=== PATIENT | male | born 1990 | race Caucasian/White ===

== ENCOUNTER 2016-07-25 10:57 | Emergency (ER) | payer MEDICAID ==
[2016-07-25 11:05] VITALS: BP 136/72; PULSE 72; RESP 16; TEMP 98; O2SAT 100
[2016-07-25 11:06] VITALS: BMI 30.9
[2016-07-25 12:27] LABS: RBC URINE 5 /hpf (0-3); URINE BILIRUBIN NEGATIVE (NEGATIVE); URINE BLOOD MODERATE (NEGATIVE); URINE COLOR YELLOW (YELLOW); URINE GLUCOSE (UA) NEG (Normal); URINE KETONE TRACE mg/dL (NEGATIVE); URINE LEUKOCYTE ESTERASE SMALL Leu/uL (Negative); URINE PROTEIN 30 mg/dL (NEGATIVE); URINE UROBILINOGEN 0.2-1.0 mg/dL (0.2-1.0); WBC URINE 21 /hpf (0-5)
--- NOTE | 2016-07-25 12:43 | US ---
HISTORY: pain TECHNIQUE: Realtime sonography through the scrotum with color and doppler flow. COMPARISON: None Available. FINDINGS: RIGHT TESTICLE: Measures 4.9 x 2.2 x 3.6 cm. No evidence of intratesticular mass. Normal Doppler flow. Tiny nonspecific calcification in the right testicle. RIGHT EPIDIDYMIS: Epididymal head measures 1.3 x 0.8 x 1.2 cm. 6 millimeter x 6 millimeter right epididymal head cyst. LEFT TESTICLE: Measures 4.3 x 2 x 3.4 cm. No evidence of intratesticular mass. Normal Doppler flow. LEFT EPIDIDYMIS: Epididymal head measures 1.0 x 0.8 x 0.7 cm. 3 millimeter left epididymal head cyst. HYDROCELE: Minimal hydrocele is seen. VARICOCELE: Minimal varicocele not excluded. OTHER FINDINGS: No scrotal wall thickening or collections. IMPRESSION: No evidence of intratesticular mass or torsion.
--- NOTE | 2016-07-25 13:05 | ED PDOC ---
HPI: Male Pain Time Seen by Provider: 07/25/16 11:10 Chief Complaint (Nursing): Male Genitourinary Chief Complaint (Provider): Male Genitourinary History Per: Patient History/Exam Limitations: no limitations Onset/Duration Of Symptoms: Days (x3 dayhs) Current Symptoms Are (Timing): Still Present Additional Complaint(s): 25 y/o male who presents to the emergency department with a complaint of an abnormal discharge (dark brown and think) after ejaculation x3 days. Experiences irritation due to shaving and intermittent testicular pain x a few months. Admits ejaculating more than usual these past few days to see if the color would clear up but nothing changed. Reports taking unknown antibiotics x 2 doses given by his father. Last sexual encounter was 2 months ago; unprotected but with no problems since and no hx of discharge or STIs. Denies penis pain, swelling, or lesions to the area. (-) rectal pain Of note, patient reports having a similar experience in the past about 2-3 years ago which lasted about 2 days no follow up. Past Medical History Reviewed: Historical Data, Nursing Documentation, Vital Signs Vital Signs: Last Vital Signs Temp 98 F 07/25/16 11:04 Pulse 72 07/25/16 11:04 Resp 16 07/25/16 11:04 BP 136/72 07/25/16 11:04 Pulse Ox 100 07/25/16 11:04 - Medical History PMH: Anxiety Denies: Diabetes, Hepatitis, HIV, HTN, Chronic Kidney Disease, Seizures, Sexually Transmitted Disease - Surgical History Surgical History: No Surg Hx - Family History Family History: States: Unknown Family Hx - Living Arrangements Living Arrangements: With Family - Social History Current smoker - smoking cessation education provided: No Alcohol: Occasional Drugs: Cannabis - Home Medications Home Medications: Ambulatory Orders Medication Instructions Recorded Ciprofloxacin [Cipro] 500 mg PO BID #14 tab 07/25/16 - Allergies Allergies/Adverse Reactions: Allergies Allergy/AdvReac Type Severity Reaction Status Date / Time Penicillins Allergy RASH Verified 07/25/16 11:07 Review of Systems ROS Statement: Except As Marked, All Systems Reviewed And Found Negative Constitutional: Negative for: Fever Gastrointestinal: Negative for: Abdominal Pain, Rectal Pain Genitourinary Male: Positive for: Penile Discharge (Brown and think discharge during ejaculation), Scrotal Pain (Intermittent). Negative for: Dysuria, Frequency, Hematuria, Rash, Penile Pain, Other (Swelling or lesions of the penis ) Musculoskeletal: Negative for: Back Pain Physical Exam - Reviewed Nursing Documentation Reviewed: Yes Vital Signs Reviewed: Yes - Physical Exam Appears: Positive for: Non-toxic, No Acute Distress Head Exam: Positive for: ATRAUMATIC, NORMOCEPHALIC Skin: Positive for: Normal Color, Warm, Dry Eye Exam: Negative for: Conjunctival injection Cardiovascular/Chest: Positive for: Regular Rate, Rhythm Respiratory: Positive for: Normal Breath Sounds Gastrointestinal/Abdominal: Positive for: Normal Exam, Soft. Negative for: Tenderness Male Genital Exam: Positive for: normal prostate (Uncircumcised; Easily retracted and repelled foreskin.), other (Has 2 small skin tears on the top of the foreskin which is secondary to masturbation. Irritation to shaved area on right aspect of the groin. ). Negative for: lesions (No swelling), scrotum tenderness (R), scrotum tenderness (L), testicular tenderness (R), testicular tenderness (L) Back: Positive for: Normal Inspection. Negative for: L CVA Tenderness, R CVA Tenderness Neurologic/Psych: Positive for: Alert, Oriented - ECG O2 Sat by Pulse Oximetry: 100 (RA) Pulse Ox Interpretation: Normal Medical Decision Making Medical Decision Making: Time: 11:10 Initial impression: Abnormal ejaculate Initial plan: --Chlamydia/GC RNA, TMA --Urine Culture Stat --Performing his own masturbation; self-inflicted for sample --Testes Duplex Complete US Time: 12:41 --Testicular Ultrasound FINDINGS: RIGHT TESTICLE:Measures 4.9 x 2.2 x 3.6 cm. No evidence of intratesticular mass. Normal Doppler flow. Tiny nonspecific calcification in the right testicle.RIGHT EPIDIDYMIS:Epididymal head measures 1.3 x 0.8 x 1.2 cm. 6 millimeter x 6 millimeter right epididymal head cyst. LEFT TESTICLE:Measures 4.3 x 2 x 3.4 cm. No evidence of intratesticular mass. Normal Doppler flow. LEFT EPIDIDYMIS:Epididymal head measures 1.0 x 0.8 x 0.7 cm. 3 millimeter left epididymal head cyst. HYDROCELE:Minimal hydrocele is seen. VARICOCELE:Minimal varicocele not excluded. OTHER FINDINGS:No scrotal wall thickening or collections. IMPRESSION:No evidence of intratesticular mass or torsion. Scribe Attestation: Documented by Arminda Almeida, acting as a scribe for Dale Ludwig PA-C. Provider Scribe Attestation: All medical record entries made by the Scribe were at my direction and personally dictated by me. I have reviewed the chart and agree that the record accurately reflects my personal performance of the history, physical exam, medical decision making, and the department course for this patient. I have also personally directed, reviewed, and agree with the discharge instructions and disposition. UA with signs of UTI. will treat with cipro discussed US as above. he was given the results of the US and the need for follow up without fail with urology stressed. calcification- can be cancer- he was made aware. return information discussed, follow up discussed, all questions answered. stable for discharge Disposition - Clinical Impression Clinical Impression: Abnormal ejaculation, Hematuria, Urinary tract infection - Patient ED Disposition Is Patient to be Admitted: No Counseled Patient/Family Regarding: Studies Performed, Diagnosis, Need For Followup, Rx Given - Disposition Referrals: [facility] [Outside] FAMILY PROVIDER,NO [Primary Care Provider] - Joao Perez MD [Medical Doctor] - Disposition Time: 13:15 Condition: STABLE Additional Instructions: US shows: IMPRESSION: No evidence of intratesticular mass or torsion. right epididymal head cyst. left epididymal head cyst. Minimal hydrocele Tiny nonspecific calcification in the right testicle. Minimal varicocele not excluded you have blood in the urine and signs of infection, take your medication without fail and follow up with urologist avoid sex and masturbation until seen by urology return for fevers or any new concerns. Prescriptions: Ciprofloxacin [Cipro] 500 mg PO BID #14 tab Instructions: Hydrocele (ED), Urinary Tract Infection in Men (ED), Acute Hematuria (ED) Print Language: [place] CITIZEN
== END 2016-07-25 13:15 | disposition home or self-care (01) ==
LOC: H.ER 10:57
DX: N39.0 Urinary tract infection, site not specified (principal); N53.19 Other ejaculatory dysfunction; N50.819 Testicular pain, unspecified; R31.9 Hematuria, unspecified

== ENCOUNTER 2016-09-13 15:59 | Emergency (ER) | payer MEDICAID, OTHER ==
[2016-09-13 16:00] VITALS: BMI 30.9
[2016-09-13 16:26] VITALS: BP 160/84; PULSE 97; RESP 19; TEMP 97.4; O2SAT 98
--- NOTE | 2016-09-13 18:44 | ED PDOC ---
HPI: Psych/Substance Abuse Time Seen by Provider: 09/13/16 18:09 Chief Complaint (Nursing): Psychiatric Evaluation Chief Complaint (Provider): Psychiatric Evaluation History Per: Patient History/Exam Limitations: no limitations Onset/Duration Of Symptoms: Mins Current Symptoms Are (Timing): Better Suicide/Self Injury Attempted (Context): None Modifying Factor(s): Alcohol, Marijuana Associated Symptoms: Anxiety Involuntary Hold By: None Additional Complaint(s): Patient is a 25 year old male who presents to ED for evaluation of feeling jittery this morning. Patient states he woke feeling jittery with palpations, smoked Marijuana with immediate improvement. Notes that he drank a large quantity of alcohol over the weekend and believe this may be the cause of his symptoms. Denies any SI or HI. States he is currently asymptomatic, requesting note for work. Denies cough, hemoptysis, chest pain, nausea, vomiting or headache. Past Medical History Reviewed: Historical Data, Nursing Documentation, Vital Signs Vital Signs: Last Vital Signs Temp 97.4 F L 09/13/16 16:23 Pulse 97 H 09/13/16 16:23 Resp 19 09/13/16 16:23 BP 160/84 H 09/13/16 16:23 Pulse Ox 98 09/13/16 16:23 - Medical History PMH: Anxiety Denies: Diabetes, Hepatitis, HIV, HTN, Chronic Kidney Disease, Seizures, Sexually Transmitted Disease - Surgical History Surgical History: No Surg Hx - Family History Family History: States: Unknown Family Hx - Living Arrangements Living Arrangements: With Family - Home Medications Home Medications: Ambulatory Orders Medication Instructions Recorded Azithromycin 1 gm PO ONCE #1 packet 07/28/16 - Allergies Allergies/Adverse Reactions: Allergies Allergy/AdvReac Type Severity Reaction Status Date / Time Penicillins Allergy RASH Verified 07/25/16 11:07 Review of Systems Constitutional: Negative for: Fever Cardiovascular: Positive for: Palpitations (resolved). Negative for: Chest Pain , Light Headedness Respiratory: Negative for: Shortness of Breath Gastrointestinal: Negative for: Nausea, Vomiting, Abdominal Pain Musculoskeletal: Negative for: Neck Pain, Back Pain Skin: Negative for: Rash Neurological: Negative for: Weakness, Numbness, Headache, Dizziness Psych: Positive for: Anxiety. Negative for: Depression, Psychosis, Suicidal ideation Physical Exam - Reviewed Nursing Documentation Reviewed: Yes Vital Signs Reviewed: Yes - Physical Exam Appears: Positive for: Non-toxic, No Acute Distress Skin: Positive for: Normal Color, Warm Eye Exam: Positive for: Normal appearance Neck: Positive for: Normal, Painless ROM Cardiovascular/Chest: Positive for: Regular Rate, Rhythm. Negative for: Murmur Respiratory: Positive for: Normal Breath Sounds. Negative for: Respiratory Distress Back: Positive for: Normal Inspection Extremity: Positive for: Normal ROM Neurologic/Psych: Positive for: Alert, Oriented - ECG ECG: Positive for: Interpreted By Me ECG Rhythm: Positive for: Sinus Rhythm. Negative for: ST/T Changes O2 Sat by Pulse Oximetry: 98 (RA) Pulse Ox Interpretation: Normal Medical Decision Making Medical Decision Making: Time: 1819 Initial Impression: Anxiety Initial Plan: -- EKG Scribe Attestation: Documented by Jena Ashley, acting as a scribe for Hao Pinto PA-C. Provider Scribe Attestation: All medical record entries made by the Scribe were at my direction and personally dictated by me. I have reviewed the chart and agree that the record accurately reflects my personal performance of the history, physical exam, medical decision making, and the department course for this patient. I have also personally directed, reviewed, and agree with the discharge instructions and disposition. Disposition - Clinical Impression Clinical Impression: Anxiety - Patient ED Disposition Is Patient to be Admitted: No - Disposition Referrals: [facility] [Outside] Disposition: Routine/Home Disposition Time: 18:20 Condition: STABLE Instructions: Anxiety (ED) Forms: [facility] ED School/Work Excuse
--- NOTE | 2016-09-14 09:25 | CARD ---
APPROVED REPORT EKG Measurement Heart [id number] <Conclusion> Normal sinus rhythm Normal ECG
== END 2016-09-13 18:51 | disposition home or self-care (01) ==
LOC: H.ER 15:59
DX: F41.9 Anxiety disorder, unspecified (principal); Z88.0 Allergy status to penicillin

== ENCOUNTER 2016-10-17 13:44 | Emergency (ER) | payer OTHER ==
[2016-10-17 13:45] VITALS: BMI 30.9
[2016-10-17 14:00] VITALS: BP 149/80; PULSE 62; RESP 18; TEMP 98.2; O2SAT 99
--- NOTE | 2016-10-17 14:38 | ED PDOC ---
HPI: Male Pain Time Seen by Provider: 10/17/16 14:05 Chief Complaint (Nursing): Male Genitourinary Chief Complaint (Provider): Rash On Head of Genitals History Per: Patient History/Exam Limitations: no limitations Onset/Duration Of Symptoms: Hrs Current Symptoms Are (Timing): Still Present Additional Complaint(s): Zen Melvin, a 25 year old male patient, who has a PMHx of Chlamydia presents to the ED with a rash on the head of his penis, which he noticed today. The patient states that he does participate in unprotected sex and has 4 sexual partners. Denies pain, dysuria, penile discharge, blisters, recent illness, fever. Past Medical History Reviewed: Historical Data, Nursing Documentation, Vital Signs Vital Signs: Last Vital Signs Temp 98.2 F 10/17/16 13:56 Pulse 62 10/17/16 13:56 Resp 18 10/17/16 13:56 BP 149/80 10/17/16 13:56 Pulse Ox 99 10/17/16 13:56 - Medical History PMH: Anxiety Denies: Diabetes, Hepatitis, HIV, HTN, Chronic Kidney Disease, Seizures, Sexually Transmitted Disease Other PMH: Chlamydia - Family History Family History: States: No Known Family Hx - Home Medications Home Medications: Ambulatory Orders Medication Instructions Recorded Azithromycin 1 gm PO ONCE #1 packet 07/28/16 - Allergies Allergies/Adverse Reactions: Allergies Allergy/AdvReac Type Severity Reaction Status Date / Time Penicillins Allergy RASH Verified 07/25/16 11:07 Review of Systems Constitutional: Negative for: Fever Genitourinary Male: Negative for: Dysuria, Penile Discharge, Penile Pain, Other (Negative for blisters) Physical Exam - Reviewed Nursing Documentation Reviewed: Yes Vital Signs Reviewed: Yes - Physical Exam Appears: Positive for: Non-toxic, No Acute Distress Gastrointestinal/Abdominal: Positive for: Normal Exam. Negative for: Soft, Tenderness Male Genital Exam: Positive for: other (Scattered erythematous papules on penile head w/o vesicles or pustules.). Negative for: testicular tenderness (R ) (No testicular tenderness or swelling.), testicular tenderness (L) (No testicular tenderness or swelling.) Neurologic/Psych: Positive for: Alert, Oriented, Gait - ECG O2 Sat by Pulse Oximetry: 99 (RA) Pulse Ox Interpretation: Normal Medical Decision Making Medical Decision Makin:05 Initial Impression: 25 year old male presenting with a rash on the head of his genitalia. Initial Plan: * HSV 1/2 (IGG),HSV(IGM) W/RF * Reevaluation The patient was informed that he may have genital herpes or genital warts, but a biopsy must be done in order to fully confirm. He was also instructed to inform all sexual partners of his current pending diagnosis and advised to avoid sexual intercourse until cleared. HSV testing will be done today. Patient was instructed to follow up with his PMD or a urologist for further testing. He states that he has an appointment with his PMD on Tuesday. Scribe Attestation Documented by Ashtyn Coulter acting as a scribe for Hao Pinto PA-C. Scribe Attestation All medical record entries made by the Scribe were at my direction and personally dictated by me. I have reviewed the chart and agree that the record accurately reflects my personal performance of the history, physical exam, medical decision making, and the department course for this patient. I have also personally directed, reviewed, and agree with the discharge instructions and disposition. Disposition - Clinical Impression Clinical Impression: Penile rash - Patient ED Disposition Is Patient to be Admitted: No - Disposition Referrals: [facility] [Outside] Justino Rogers MD [Medical Doctor] - Disposition Time: 14:15 Condition: STABLE Additional Instructions: Follow up with Dr. Rogers, urologist, or your PMD for further evaluation of rash. Instructions: Sexually Transmitted Diseases (ED), Safe Sex (ED)
== END 2016-10-17 14:38 | disposition home or self-care (01) ==
LOC: H.ER 13:44
DX: R21 Rash and other nonspecific skin eruption (principal); Z86.19 Personal history of other infectious and parasitic diseases

== ENCOUNTER 2017-03-22 10:45 | Emergency (ER) | payer OTHER ==
[2017-03-22 11:07] VITALS: BMI 31.0
[2017-03-22] MEDS ORDERED: Sodium Chloride 0.9% 1,000 ML IV STA (11:17)
--- NOTE | 2017-03-22 11:20 | ED PDOC ---
HPI: Abdomen Time Seen by Provider: 03/22/17 10:56 Chief Complaint (Nursing): Abdominal Pain History Per: Patient Onset/Duration Of Symptoms: Days (1) Current Symptoms Are (Timing): Still Present Severity: Moderate Pain Scale Rating Of: 4 Location Of Pain/Discomfort: Epigastric Quality Of Discomfort: Sharp Associated Symptoms: denies: Fever, Nausea, Vomiting, Diarrhea Exacerbating Factors: Other (medication) Alleviating Factors: None Additional Complaint(s): Epigastric abd pain since last night. Denies NVD. Has been taking Ibuprohen and clindamycin post tooth extraction. Past Medical History Vital Signs: Last Vital Signs Temp 98.1 F 03/22/17 11:06 Pulse 70 03/22/17 11:06 Resp 20 03/22/17 11:06 BP 127/64 03/22/17 11:06 Pulse Ox 97 03/22/17 11:19 - Medical History PMH: Anxiety, Asthma Denies: Diabetes, Hepatitis, HIV, HTN, Chronic Kidney Disease, Seizures, Sexually Transmitted Disease - Family History Family History: States: Unknown Family Hx - Home Medications Home Medications: Ambulatory Orders Medication Instructions Recorded Azithromycin 1 gm PO ONCE #1 packet 07/28/16 Famotidine [Pepcid] 20 mg PO Q12 #20 tab 03/22/17 - Allergies Allergies/Adverse Reactions: Allergies Allergy/AdvReac Type Severity Reaction Status Date / Time Penicillins Allergy RASH Verified 07/25/16 11:07 Review of Systems ROS Statement: Except As Marked, All Systems Reviewed And Found Negative Gastrointestinal: Positive for: Abdominal Pain Physical Exam - Reviewed Nursing Documentation Reviewed: Yes Vital Signs Reviewed: Yes - Physical Exam Appears: Positive for: Well, Non-toxic, No Acute Distress Head Exam: Positive for: ATRAUMATIC, NORMAL INSPECTION, NORMOCEPHALIC Skin: Positive for: Normal Color, Warm, DRY Eye Exam: Positive for: EOMI, Normal appearance, PERRL ENT: Positive for: Normal ENT Inspection Neck: Positive for: Normal, Painless ROM Cardiovascular/Chest: Positive for: Regular Rate, Rhythm Respiratory: Positive for: CNT, Normal Breath Sounds Gastrointestinal/Abdominal: Positive for: Bowel Sounds, Soft, Tenderness (Mild epigastric) Back: Positive for: Normal Inspection Extremity: Positive for: Normal ROM Neurologic/Psych: Positive for: Alert, Oriented - Laboratory Results Result Diagrams: 03/22/17 11:30 03/22/17 11:30 - ECG O2 Sat by Pulse Oximetry: 97 - Progress Re-evaluation Time: 13:04 Condition: Improved Disposition - Clinical Impression Clinical Impression: Gastritis - Patient ED Disposition Is Patient to be Admitted: No Counseled Patient/Family Regarding: Studies Performed, Diagnosis, Need For Followup, Rx Given - Disposition Referrals: [facility] [Outside] Disposition: Routine/Home Disposition Time: 13:04 Condition: FAIR Prescriptions: Famotidine [Pepcid] 20 mg PO Q12 #20 tab Instructions: Gastritis (ED) Forms: [employer] (Greenlandic)
[2017-03-22 11:54] LABS: BASO % 0.4 % (0.0-2.0); EOS # 0.3 K/uL (0.0-0.7); EOS % 2.7 % (0.0-4.0); HEMATOCRIT 46.7 % (35.0-51.0); LYMPH # 2.7 K/uL (1.0-4.3); LYMPH % 25.6 % (20.0-40.0); MEAN CELL VOLUME 88.3 fl (80.0-94.0); MEAN CORPUSCULAR HEMOGLOBIN 30.1 pg (27.0-31.0); MEAN CORPUSCULAR HGB CONC 34.1 g/dL (33.0-37.0); MEAN PLATELET VOLUME 8.2 fl (7.2-11.7); MONO # 0.5 K/uL (0.0-0.8); MONO % 4.6 % (0.0-10.0); NEUT % 66.7 % (50.0-75.0); NRBC % 0.1 % (0.0-0.0); RED CELL DISTRIBUTION WIDTH 13.4 % (11.5-14.5); WHITE BLOOD COUNT 10.5 K/uL (4.8-10.8)
[2017-03-22 12:02] LABS: ALB/GLOB RATIO 1.3 (1.0-2.1); ALKALINE PHOSPHATASE 77 U/L (38-126); ALT/SGPT 35 U/L (21-72); AST/SGOT 20 U/L (17-59); BILIRUBIN,TOTAL 0.6 mg/dl (0.2-1.3); BLOOD UREA NITROGEN 11 mg/dl (9-20); CALCIUM 9.5 mg/dL (8.4-10.2); CARBON DIOXIDE 25 mmol/L (22-30); CHLORIDE 104 mmol/L (98-107); GFR AFRICAN-AMERICAN > 60; GLUCOSE,RANDOM 89 mg/dL (75-110); LIPASE 21 U/L (23-300); POTASSIUM 3.9 MMOL/L (3.6-5.0); SODIUM 142 mmol/l (132-148); TOTAL PROTEIN 7.9 G/DL (6.3-8.2)
[2017-03-22 14:29] VITALS: BP 120/78; PULSE 78; RESP 18; TEMP 97; O2SAT 98
== END 2017-03-22 14:29 | disposition home or self-care (01) ==
LOC: H.ER 10:45
DX: K29.70 Gastritis, unspecified, without bleeding (principal); F41.9 Anxiety disorder, unspecified; J45.909 Unspecified asthma, uncomplicated; Z88.0 Allergy status to penicillin
CPT/HCPCS: 80053; 83690; 85025; 96374; 99282; J7040

== ENCOUNTER 2017-08-19 18:46 | Emergency (ER) | payer OTHER ==
[2017-08-19 18:47] VITALS: BMI 31.0
[2017-08-19 18:55] VITALS: RESP 16; O2SAT 98
[2017-08-19] MEDS ORDERED: Atrop/Hyos/Scop/PhenoB Elixir PO STA (20:33)
[2017-08-19] MEDS ORDERED: Alum-Mag Hydrox-Simethicone Susp (30 mL) PO STA (20:33)
[2017-08-19] MEDS ORDERED: Sodium Chloride 0.9% 1,000 ML IV SCH (20:45)
--- NOTE | 2017-08-19 21:00 | ED PDOC ---
HPI: Abdomen Time Seen by Provider: 08/19/17 20:25 Chief Complaint (Nursing): Abdominal Pain History Per: Patient History/Exam Limitations: no limitations Onset/Duration Of Symptoms: Days (1) Additional Complaint(s): 26-year-old male with no significant past medical history, complains of nonradiating constant epigastric pain, associated with no other symptoms present since this morning, started after eating a sandwich. Reports taking no medications to improve his symptoms. He admits having similar symptoms in the past, states he was seen and evaluated in this emergency room for it, and since then has not followed up with his PMD or a GI doctor. Otherwise: (-) nausea/ vomiting, (-) diarrhea, (-) fever, (-) melena, , (-) urinary symptoms, (-) hematochezia. Has no history of prior abdominal surgery. Past Medical History Vital Signs: Last Vital Signs Temp 97.8 F 08/19/17 18:54 Pulse 64 08/19/17 18:54 Resp 16 08/19/17 18:54 BP 154/79 H 08/19/17 18:54 Pulse Ox 98 08/19/17 21:02 - Medical History PMH: Anxiety, Asthma Denies: Diabetes, Hepatitis, HIV, HTN, Chronic Kidney Disease, Seizures, Sexually Transmitted Disease - Family History Family History: States: Unknown Family Hx - Home Medications Home Medications: Ambulatory Orders Medication Instructions Recorded Azithromycin 1 gm PO ONCE #1 packet 07/28/16 Famotidine [Pepcid] 20 mg PO Q12 #20 tab 03/22/17 Famotidine [Pepcid] 40 mg PO DAILY #30 tablet 08/19/17 - Allergies Allergies/Adverse Reactions: Allergies Allergy/AdvReac Type Severity Reaction Status Date / Time Penicillins Allergy RASH Verified 07/25/16 11:07 Review of Systems Constitutional: Negative for: Fever, Weakness, Malaise Cardiovascular: Negative for: Chest Pain, Palpitations, Edema Respiratory: Negative for: Cough, Shortness of Breath Gastrointestinal: Positive for: Abdominal Pain. Negative for: Nausea, Vomiting , Diarrhea Genitourinary Male: Negative for: Dysuria, Frequency Skin: Negative for: Rash, Lesions, Jaundice Physical Exam - Physical Exam Comments: GENERAL APPEARANCE: Patient is awake, alert, oriented x 3, in no acute distress. SKIN: Warm, dry; (-) cyanosis. EYES: (-) conjunctival pallor, (-) scleral icterus. ENMT: Mucous membranes moist. NECK: (-) tenderness, (-) stiffness, (-) lymphadenopathy. CHEST AND RESPIRATORY: (-) rales, (-) rhonchi, (-) wheezes; breath sounds equal bilaterally. HEART AND CARDIOVASCULAR: (-) irregularity; (-) murmur, (-) gallop. ABDOMEN AND GI: (-) distention. Bowel sounds active; (-) tenderness to deep palpation, negative Navarro sign, (-) guarding, (-) rebound, (-) palpable masses. EXTREMITIES: (-) deformity, (-) edema, (+) distal pulses. NEURO AND PSYCH: Mental status as above; (-) focal findings. - Laboratory Results Result Diagrams: 08/19/17 20:53 08/19/17 21:20 - ECG O2 Sat by Pulse Oximetry: 98 Medical Decision Making Medical Decision Making: Previous medical records reviewed, patient was last seen in this emergency room on 03/22/2017 for epigastric pain, during that visit patient had normal labs, and was diagnosed with gastritis. Impression: Gastritis Plan: -- Labs -- IV fluids -- Pepcid IV/ Zofran ODT by mouth/ GI cocktail -- Reassess and disposition On re-evaluation, patient reports improvement of symptoms, denies any abdominal pain or nausea, states that he feels hungry and wants to eat. On exam, patient remains AAOx3, in no acute distress, ambulatory in the ER. Abdomen soft, non- tender, (-) Navarro's sign. Lab results reviewed and d/w the patient. Diagnosis of gastritis d/w the patient. Patient states that he feels comfortable going home and intends to f/u w/ his pmd. Based on history, exam and diagnostic results, plan will be for outpatient follow up. Patient instructed to follow-up with pmd in 1-2 days without fail. Advised to take medication as prescribed. Return to the emergency room at any time for any new or worsening symptoms. Patient states he fully agrees with and understands discharge instructions. States that he agrees with the plan and disposition. Verbalized and repeated discharge instructions and plan. I have given the patient opportunity to ask any additional questions. Disposition - Clinical Impression Clinical Impression: Dyspepsia - Patient ED Disposition Is Patient to be Admitted: No Counseled Patient/Family Regarding: Studies Performed, Diagnosis, Need For Followup, Rx Given - Disposition Disposition: Routine/Home Disposition Time: 22:15 Condition: IMPROVED Additional Instructions: Thank you for letting us take care of you today. You were treated for dyspepsia. The emergency medical care you received today was directed at your acute symptoms. If you were prescribed any medication, please fill it and take as directed. It may take several days for your symptoms to resolve. Return to the Emergency Department if your symptoms worsen, do not improve, or if you have any other problems. Please contact your doctor in 2 days for re-evaluation and follow up. Bring any paperwork you were given at discharge with you along with any medications you are taking to your follow up visit. Our treatment cannot replace ongoing medical care by a primary care provider (PCP) outside of the emergency department. Thank you for allowing the [facility] team to be part of your care today. Prescriptions: Famotidine [Pepcid] 40 mg PO DAILY #30 tablet Instructions: Dyspepsia (DC) Forms: [employer] (Kyrgyz)
[2017-08-19 21:12] LABS: BASO # 0.1 K/uL (0.0-0.2); BASO % 0.6 % (0.0-2.0); EOS # 0.2 K/uL (0.0-0.7); EOS % 1.9 % (0.0-4.0); HEMOGLOBIN 15.7 g/dL (12.0-18.0); LYMPH # 3.5 K/uL (1.0-4.3); LYMPH % 29.3 % (20.0-40.0); MEAN CELL VOLUME 90.8 fl (80.0-94.0); MEAN CORPUSCULAR HEMOGLOBIN 30.1 pg (27.0-31.0); MEAN CORPUSCULAR HGB CONC 33.2 g/dL (33.0-37.0); MEAN PLATELET VOLUME 8.9 fl (7.2-11.7); MONO % 7.9 % (0.0-10.0); NEUT # 7.2 K/uL (1.8-7.0); NEUT % 60.3 % (50.0-75.0); RBC 5.2 Mil/uL (4.40-5.90); RED CELL DISTRIBUTION WIDTH 13.8 % (11.5-14.5)
[2017-08-19] MEDS ORDERED: Alum-Mag Hydrox-Simethicone Susp (30 mL) ONE (21:44)
[2017-08-19 22:04] LABS: ALB/GLOB RATIO 1.4 (1.0-2.1); ALBUMIN 4.5 g/dL (3.5-5.0); ALT/SGPT 37 U/L (21-72); AST/SGOT 42 U/L (17-59); BLOOD UREA NITROGEN 15 mg/dl (9-20); CALCIUM 9.3 mg/dL (8.4-10.2); GFR AFRICAN-AMERICAN > 60; GFR NON-AFRICAN AMERICAN > 60; LIPASE 40 U/L (23-300)
[2017-08-19 22:26] VITALS: BP 129/81; PULSE 83; TEMP 98.2
== END 2017-08-19 22:25 | disposition home or self-care (01) ==
LOC: H.ER 18:46
DX: K30 Functional dyspepsia (principal); F41.9 Anxiety disorder, unspecified; Z88.0 Allergy status to penicillin
CPT/HCPCS: 80053; 83690; 85025; 96361; 96374; 99284; J7040

== ENCOUNTER 2017-09-28 14:32 | Emergency (ER) | payer OTHER ==
[2017-09-28 14:32] VITALS: BMI 31.0
[2017-09-28 14:46] VITALS: BP 130/73; PULSE 67; TEMP 98.2; O2SAT 97
--- NOTE | 2017-09-28 15:01 | ED PDOC ---
HPI: Abdomen Time Seen by Provider: 09/28/17 14:52 Chief Complaint (Nursing): Abdominal Pain History Per: Patient Onset/Duration Of Symptoms: Days (1) Current Symptoms Are (Timing): Gone Now Severity: Mild Pain Scale Rating Of: 2 Location Of Pain/Discomfort: Epigastric Quality Of Discomfort: Sharp Associated Symptoms: Nausea. denies: Fever, Vomiting, Diarrhea Exacerbating Factors: None Alleviating Factors: None Additional Complaint(s): Epigasgric abd pain assoc with nausea last night. Gone now. No fever or diarrhea. Ran out of Pepcid so unable to take his meds. Past Medical History Vital Signs: Last Vital Signs Temp 98.2 F 09/28/17 14:45 Pulse 67 09/28/17 14:45 Resp 16 09/28/17 14:45 BP 130/73 09/28/17 14:45 Pulse Ox 97 09/28/17 14:45 - Medical History PMH: Anxiety, Asthma Denies: Diabetes, Hepatitis, HIV, HTN, Chronic Kidney Disease, Seizures, Sexually Transmitted Disease - Family History Family History: States: Unknown Family Hx - Home Medications Home Medications: Ambulatory Orders Medication Instructions Recorded Azithromycin 1 gm PO ONCE #1 packet 07/28/16 Famotidine [Pepcid] 20 mg PO Q12 #20 tab 03/22/17 Famotidine [Pepcid] 40 mg PO DAILY #30 tablet 08/19/17 Famotidine [Pepcid] 20 mg PO Q12 #20 tab 09/28/17 - Allergies Allergies/Adverse Reactions: Allergies Allergy/AdvReac Type Severity Reaction Status Date / Time Penicillins Allergy RASH Verified 07/25/16 11:07 Review of Systems Constitutional: Negative for: Fever Gastrointestinal: Positive for: Nausea, Abdominal Pain. Negative for: Vomiting , Diarrhea Physical Exam - Physical Exam Appears: Positive for: Non-toxic, No Acute Distress Skin: Positive for: Normal Color, Warm, DRY Cardiovascular/Chest: Positive for: Regular Rate, Rhythm Respiratory: Positive for: CNT, Normal Breath Sounds Gastrointestinal/Abdominal: Positive for: Bowel Sounds, Soft. Negative for: Tenderness Back: Negative for: L CVA Tenderness, R CVA Tenderness - ECG O2 Sat by Pulse Oximetry: 97 Medical Decision Making Medical Decision Making: Pt declines blood work IVF or meds in ED Disposition - Clinical Impression Clinical Impression: Gastritis - Patient ED Disposition Is Patient to be Admitted: No Counseled Patient/Family Regarding: Diagnosis, Need For Followup, Rx Given - Disposition Referrals: [facility] [Outside] Disposition: Routine/Home Disposition Time: 15:01 Condition: FAIR Prescriptions: Famotidine [Pepcid] 20 mg PO Q12 #20 tab Instructions: Gastritis Forms: [facility] ([place]), [facility] School/Work Excuse
[2017-09-28 16:20] VITALS: RESP 18
== END 2017-09-28 15:35 | disposition home or self-care (01) ==
LOC: H.ER 14:32
DX: K52.9 Noninfective gastroenteritis and colitis, unspecified (principal)